=== PATIENT | female | born 1975 | race African-American/Black ===

== ENCOUNTER 2024-03-05 15:24 | Emergency (ER) | payer SELFPAY ==
[~2024-03-05] VITALS: Ht 167.6 cm; Wt 54.0 kg
[2024-03-05 15:33] VITALS: O2SAT 98
[2024-03-05 17:23] LABS: DIFFERENTIAL COMMENT 0; EOSINOPHILS % 1.5 % (0.0-5.0); HEMATOCRIT. 35.3 % (36.0-48.0); HEMOGLOBIN. 11.4 g/dL (12.0-16.0); LYMPHOCYTES % 48.3 % (20.0-50.0); MEAN CORPUSCULAR HEMOGLOBIN 24.6 pg (28.0-32.0); MEAN CORPUSCULAR HGB CONC 32.2 g/dL (31.0-37.0); MEAN CORPUSCULAR VOLUME 76.3 fL (81.0-99.0); MEAN PLATELET VOLUME 8.3 fl (7.4-10.4); MONOCYTES % 8.8 % (2.0-8.0); NEUTROPHILS % 39.4 % (40.0-76.0); PLATELET 240 x1000/uL (130-400); RED BLOOD CELL COUNT 4.63 mill/uL (4.2-5.4); RED CELL DISTRIBUTION WIDTH 19.7 % (11.6-14.6); WHITE BLOOD COUNT 4.2 x1000/uL (4.5-11.0)
[2024-03-05 17:27] LABS: CHLORIDE 110 mEq/L (98-107); POTASSIUM 3.9 mEq/L (3.5-5.1); SODIUM 142 mEq/L (136-145)
[2024-03-05 17:28] LABS: CALCIUM 8.9 mg/dL (8.7-10.4); CARBON DIOXIDE 25 mEq/L (21-32)
[2024-03-05 17:33] LABS: CREATININE 0.6 mg/dL (0.6-1.0); GLUCOSE 85 mg/dL (70-105); UREA NITROGEN BLOOD 7 mg/dL (9-23)
[2024-03-05 17:34] LABS: ETHANOL BLOOD 46 mg/dL (<10)
[2024-03-05 17:36] LABS: AMMONIA < 17 uMol/L (<32)
[2024-03-05 17:40] LABS: HCG SCREEN NEGATIVE
[2024-03-05] MEDS ORDERED: NALO4SPR BOTHNSTRLS (19:11)
[2024-03-05 20:15] VITALS: BP 122/87; PULSE 71; RESP 16
== END 2024-03-05 20:51 | disposition home or self-care (01) ==
LOC: EDBD 15:32 → ER 15:32
DX: T40.2X1A Poisoning by other opioids, accidental (unintentional), initial encounter (principal); F10.129 Alcohol abuse with intoxication, unspecified; F19.10 Other psychoactive substance abuse, uncomplicated; Y92.89 Other specified places as the place of occurrence of the external cause; Y90.2 Blood alcohol level of 40-59 mg/100 ml
CPT/HCPCS: 80048; 80320; 82140; 84703; 85025; 36415; 71045; 70450; 99291; Z7610 ×4; G0480